=== PATIENT | female | born 1985 | race Caucasian/White ===

== ENCOUNTER 2021-10-06 05:21 | Inpatient (IN) | payer OTHER ==
[~2021-10-06 05:21] MED LIST: ceFAZolin 2 GM in Sodium Chloride 0.9% 50 ML IV ONE
[2021-10-06] MEDS: Lactated Ringers 1,000 ML IV SCH ×2 (05:50→06:34)
[2021-10-06] MEDS ORDERED: Citric Acid/Sodium Citrate Solution 30 ML Cup PO ONE (07:00)
[2021-10-06] MEDS ORDERED: Lidocaine 1%/Sod Bicarbonate in NS 8.4% 1 ML Syringe IDERM PRN (07:00)
[2021-10-06] MEDS ORDERED: Sodium Chloride 0.9% 10 ML Syringe FLUSH SCH (07:00)
[2021-10-06] MEDS ORDERED: Lactated Ringers 1,000 ML IV SCH (07:00)
[2021-10-06] MEDS ORDERED: Metoclopramide 10 MG/2 ML SDV IVPUSH ONE (07:00)
[2021-10-06] MEDS ORDERED: Sodium Chloride 0.9% 10 ML Syringe FLUSH PRN (07:00)
[2021-10-06] MEDS ORDERED: fentaNYL 100 MCG/2 ML SDV ONE (07:11)
[2021-10-06] MEDS ORDERED: Morphine PF 10 MG/10 ML SDV ONE (07:11)
[2021-10-06] MEDS ORDERED: Oxytocin 10 Units/1 ML SDV ONE (07:12)
[2021-10-06] MEDS ORDERED: Ketorolac 30 MG/ML SDV ONE (07:12)
[2021-10-06] MEDS ORDERED: Ondansetron 4 MG/2 ML SDV ONE (07:12)
[2021-10-06] MEDS ORDERED: Bupivacaine 0.75%/D5W 2 ML Amp ONE (07:12)
[2021-10-06] MEDS ORDERED: ceFAZolin 1 GM Vial ONE (07:16)
[2021-10-06] MEDS ORDERED: Oxytocin/Lactated Ringers 10 UNIT/1,000 ML BAG IV SCH (07:45)
[2021-10-06] MEDS ORDERED: Lactated Ringers 1,000 ML ONE ×2 (08:02→08:43)
[2021-10-06] MEDS ORDERED: ePHEDrine 50 MG/ML SDV ONE (08:04)
[2021-10-06] MEDS ORDERED: diphenhydrAMINE 50 MG/ML SDV IVPUSH PRN ×2 (09:32→11:20)
[2021-10-06] MEDS ORDERED: fentaNYL 100 MCG/2 ML SDV IVPUSH PRN (09:32)
[2021-10-06] MEDS ORDERED: Ondansetron 4 MG/2 ML SDV IVPUSH PRN (09:32)
[2021-10-06] MEDS ORDERED: Docusate Sodium 100 MG Cap PO PRN (11:20)
[2021-10-06] MEDS ORDERED: Acetaminophen/oxyCODONE 325-5 MG Tab PO PRN (11:20)
[2021-10-06] MEDS ORDERED: ePHEDrine 50 MG/ML SDV IVPUSH PRN (11:20)
[2021-10-06] MEDS ORDERED: Naloxone 0.4 MG/ML SDV IVPUSH PRN (11:20)
[2021-10-06] MEDS ORDERED: Dextrose 5%-Lactated Ringers 1,000 ML IV SCH (11:20)
[2021-10-06] MEDS ORDERED: Ketorolac 30 MG/ML SDV IVPUSH SCH (13:00)
[2021-10-06] MEDS: Ketorolac 30 MG/ML SDV IVPUSH SCH ×2 (15:09→21:41)
[2021-10-07] MEDS: Ketorolac 30 MG/ML SDV IVPUSH SCH (03:42)
[2021-10-07] MEDS ORDERED: Ibuprofen 600 MG Tab PO PRN (07:00)
[2021-10-07] MEDS: Acetaminophen/oxyCODONE 325-5 MG Tab PO PRN ×4 (09:51→22:27)
[2021-10-08] MEDS: Acetaminophen/oxyCODONE 325-5 MG Tab PO PRN ×2 (03:35→07:48)
== END 2021-10-08 10:40 | disposition home or self-care (01) | DRG 786 ==
LOC: JD.OB 05:21
PROVIDERS: ADMIT Obstetrics & Gynecology; ATTEND Obstetrics & Gynecology
PROC: 10D00Z1 Extraction of Products of Conception, Low, Open Approach (ICD-10-PCS; principal; 2021-10-06)
DX: O34.211 Maternal care for low transverse scar from previous cesarean delivery (principal); U07.1 COVID-19; O98.52 Other viral diseases complicating childbirth; Z3A.39 39 weeks gestation of pregnancy; Z37.0 Single live birth
CPT/HCPCS: 01961; 36415; 59025; 85025; 85027; 86592; 86850; 86900; 86901; A9270-GY; J0690; J1885; J2274; J2405; J2590; J2765; J3010; J7120; J7121; U0002